=== PATIENT | male | born 1950 | race Caucasian/White ===

== ENCOUNTER → 2019-07-14 | Day surgery (SDC) | payer OTHER ==
[2019-07-02 12:14] LABS: BASOPHILS % 0.7 % (0.0-1.0); EOSINOPHILS # (AUTO) 0.1 (0.0-0.4); EOSINOPHILS % 2.2 % (0.0-6.0); HEMATOCRIT 48.4 % (38.2-49.6); HEMOGLOBIN 16.4 g/dL (14.0-18.0); LYMPHOCYTES # (AUTO) 2.2 (1.0-3.2); LYMPHOCYTES % 37.5 % (18.0-39.1); MEAN CORPUSCULAR HEMOGLOBIN 31.1 pg (28-32); MEAN CORPUSCULAR HGB CONC 33.9 g/dL (31-35); MEAN CORPUSCULAR VOLUME 91.8 fL (81-99); MONOCYTES # (AUTO) 0.5 (0.2-0.8); NEUTROPHILS % 51.4 % (38.7-80.0); PLATELET COUNT 221 x10e3/uL (140-360); RED BLOOD COUNT 5.27 x10e6/uL (4.3-5.7); RED CELL DISTRIBUTION WIDTH 14.1 % (11.7-14.4)
--- NOTE | 2019-07-02 13:26 | Diagnostic Imaging Report ---
Chest, PA and lateral. History: Preoperative evaluation for left knee surgery. Comparison: None available. Discussion: The cardiomediastinal silhouette and pulmonary vasculature are within normal limits. The lungs are clear without evidence of consolidation or effusion. There are no acute osseous abnormalities. IMPRESSION: No radiographic evidence of acute cardiopulmonary abnormality. Signed by: Sundeep Valdovinos MD on 07/02/2019 1:23 PM
[~2019-07-14] MED LIST: ACETAMINOPHEN 1000 MG/100 ML IV ONE; ASPIRIN81 MG PO; ATORVASTATIN CA20 MG PO; BUPIVACAINE 0.5%/EPI 30 ML SDV INJ ONE; CEFAZOLIN SOD 1 GM/NS 50ML 100 ML IV ONE; DEXAMETHASONE SOD PHOS INJ 4 MG/ML VIAL ONE; FENTANYL CITRATE/PF 100MCG/2 ML INJ ONE; KETOROLAC TROMETHAMINE 30 MG/ML VIAL ONE; LIDOCAINE HCL 2% LOCAL INJ 5 ML SDV VIAL INJ ONE; MIDAZOLAM HCL 2 MG/2 ML VIAL ONE; ONDANSETRON HCL INJ 2MG/ML 2ML 2 MG/ML VIAL ONE; PROPOFOL IV EMULSION 10 MG/ML 20 ML VIAL ONE; SEVOFLURANE INHAL SOLN 250 ML PEN BTL ONE; [UNRECOGNIZED DRUG - OTHER] PO
--- OUTSIDE RECORDS SUMMARY | 2019-07-14 05:38 | XMS REPORT ---
Author Author [facility] Address Unknown Phone Unavailable Care Team Providers Care Screen Printing Paster Name Role Phone FRANKIE HOWARD Unavailable Unavailable Problems This patient has no known problems. Allergies, Adverse Reactions, Alerts This patient has no known allergies or adverse reactions. Medications This patient has no known medications. Results Test Description Test Time Test Comments Text Results Atomic Results Result Comments CHEST 2 VIEWS 2019-07-02 13:23:00 [place] [address] Patient Name: ARNOLDO ALLEN MR #: [id number] : 1950 Age/Sex: 69/M Req #: [id number] [facility] Physician: Ordered by: FRANKIE HOWARD MD Report #: [id number] Location: OR Room/Bed: Procedure: [id number] DX/CHEST 2 VIEWS Exam Date: 07/02/19 Exam Time: 1215 REPORT STATUS: Signed Chest, PA and lateral. History: Preoperative evaluation for left knee surgery. Comparison: None available. Discussion: The cardiomediastinal silhouette and pulmonary vasculature are within normal limits. The lungs are clear without evidence of consolidation or effusion. There are no acute osseous abnormalities. IMPRESSION: No radiographic evidence of acute cardiopulmonary abnormality. Signed by: Sundeep Rowe MD on 07/02/2019 1:23 PM Dictated By: SUNDEEP ROWE MD 1323 Transcribed By: JASPER on 07/02/19 1323 COPY TO: FRANKIE HOWARD MD Mycobacteria, Culture w/ Fluorochrome Sm 2019-05-17 10:42:46 Culture- (test code=Culture-) See comment 05/15/19 Culture results to follow. Final reports ofnegative cultures can be expected in approximatelysix weeks. Positive cultures are reported immediately.PERFORMING SITE:[facility] [place] [address] [place] Man: SAIMA HURTADO MD, CLIA: [id number] Smear- (test code=Smear-) See comment 05/15/19 No acid fast bacilli seen.PERFORMING SITE:[facility] [place] [address] [place] Man: SAIMA HURTADO MD, CLIA: [id number] Culture, Mycobacterium w/Fluorochrome Sm (test code=Culture, Mycobacterium w/Fluorochrome Sm) see comment 05/15/2019 Smear: No acid fast bacilli seen.Culture results to follow. Final reports of negative c ultures can be expected in approximately six weeks. Positive cultures are reported immediately. Mycobacteria, Culture w/ Fluorochrome [id number] 10:42:46* Test Item Value Reference Range Comments Culture- (test code=Culture-) See comment 05/15/19 Culture results to follow. Final reports ofnegative cultures can be expected in approximatelysix weeks. Positive cultures are reported immediately.06/28/19 No Mycobacterium species isolated after 6 weeks incubation.PERFORMING SITE:[facility] [place] [address] [place] Man: SAIMA HURTADO MD, CLIA: [id number] Smear- (test code=Smear-) See comment 05/15/19 No acid fast bacilli seen.PERFORMING SITE:[facility] [place] [address] [place] Man: SAIMA HURTADO MD, CLIA: [id number] Culture, Mycobacterium w/Fluorochrome Sm (test code=Culture, Mycobacterium w/Fluorochrome Sm) see comment 05/15/2019 Smear: No acid fast bacilli seen.Culture results to follow. Final reports of negative c ultures can be expected in approximately six weeks. Positive cultures are reported immediately. Culture, Fungus (Not Hair, Skin, Blood)2019-05-17 10:41:05* Test Item Value Reference Range Comments Culture: (test code=Culture:) See comment 05/17/19 No fungi isolated to date.PERFORMING SITE:[facility] [place] [address] [place] Man: SAIMA HURTADO MD, CLIA: [id number] Smear: (test code=Smear:) See comment 05/16/19 No fungal elements seenPERFORMING SITE:[facility] [place] [address] [place] Man: SAIMA HURTADO MD, CLIA: [id number] Culture, Fungus, Not HSN, Stain ID (test code=Culture, Fungus, Not HSN, Stain ID) see comment Culture, Fungus (Not Hair, Skin, Blood)2019-05-17 10:41:05* Test Item Value Reference Range Comments Culture: (test code=Culture:) See comment 05/17/19 No fungi isolated to date.06/28/19 No fungal growth at 4 weeks.PERFORMING SITE:[facility] [place] [address] [place] Man: SAIMA HILL MD, CLIA: [id number] Smear: (test code=Smear:) See comment 05/16/19 No fungal elements seenPERFORMING SITE:[facility] [place] [address] [place] Man: SAIMA HURTADO MD, CLIA: [id number] Culture, Fungus, Not HSN, Stain ID (test code=Culture, Fungus, Not HSN, Stain ID) see comment
[2019-07-14 09:20] VITALS: BP 120/70
--- NOTE | 2019-07-14 14:35 | Operative Report ---
DATE OF PROCEDURE: 07/14/2019 SURGEON: Brandon Riley MD PREOPERATIVE DIAGNOSES: 1. Left knee medial meniscus tear. 2. Left knee degenerative joint disease of the knee. POSTOPERATIVE DIAGNOSES: 1. Left knee medial meniscus tear. 2. Left knee degenerative joint disease of the knee. OPERATIONS AND PROCEDURES PERFORMED: The patient underwent left knee examination under anesthesia, left knee arthroscopy, left knee partial medial meniscectomy, left knee chondroplasty of the patella, the trochlea, the medial femoral condyle, the medial tibial plateau, the lateral femoral condyle, and lateral tibial plateau. ADAPTIVE PHYSICAL EDUCATOR: ADRY Valencia. ANESTHESIA: General endotracheal intubation anesthesia. IV FLUIDS: Per the anesthesia record. BRIEF DESCRIPTION OF THE PATIENT'S OPERATIVE PROCEDURE: Mr. Berg was taken to the operating room, placed in the supine position on the operating room table. Following the induction of general anesthesia as well as endotracheal intubation, the patient's left lower extremity was examined under anesthesia. He was found to have a mild effusion within the knee joint, but otherwise ligamentously stable knee. The patient's lower extremity was prepped and draped in standard surgical fashion. A two-port technique used to provide this patient's arthroscopic evaluation of the knee joint. Examination of the suprapatellar pouch and medial lateral gutters found no evidence of loose bodies. There was, however, evidence of chondromalacia of the patellar and trochlear surfaces. The scope was advanced to the medial compartment. Examination of the medial compartment demonstrated a torn medial meniscus with significant displacement of the meniscal tissue into the intra-articular portion of the knee joint. There was also chondromalacia of the medial femoral condyle and medial tibial plateau. A combination of biting forceps and a motorized shaver used to resect the torn portion of meniscus. Chondroplasties of the medial femoral condyle and medial tibial plateau were performed at this time. Scope was then advanced to the intercondylar notch. The anterior cruciate ligament was identified and found to be intact. Scope was then advanced to the lateral compartment and chondromalacia articulating surfaces were encountered. A chondroplasty of the lateral femoral condyle and lateral tibial plateau was performed at this time. There was marked fraying of the lateral meniscus. The scope was then placed in the suprapatellar pouch and chondroplasty of the patellar and trochlear were performed. The knee was inflated with sterile normal saline. Each of the portal sites were closed with 4-0 nylon suture. The portal sites as well as the knee itself were injected with 0.5% Marcaine with epinephrine. Sterile dressings were applied. The patient was awakened and taken to the postanesthesia care unit in stable condition. MD ROSY Bull/BRETT /[id number]
== END | disposition home or self-care (01) ==
LOC: OR 05:35
PROVIDERS: ATTEND Specialist
DX: S83.222A Peripheral tear of medial meniscus, current injury, left knee, initial encounter (principal); M17.12 Unilateral primary osteoarthritis, left knee; Z88.2 Allergy status to sulfonamides; I10 Essential (primary) hypertension; Z01.810 Encounter for preprocedural cardiovascular examination; Z01.812 Encounter for preprocedural laboratory examination; Z01.811 Encounter for preprocedural respiratory examination
CPT/HCPCS: 29881; 36415; 71046; 85025; 93005; J0131; J0690; J1100; J1885; J2001; J2250; J2405; J2704; J3010